=== PATIENT | male | born 1980 | race Two or more races ===

== ENCOUNTER 2021-02-21 22:52 | Observation (INO) | payer OTHER ==
[~2021-02-21] VITALS: Ht 172.7 cm; Wt 94.6 kg
[2021-02-21 23:15] LABS: BASO % 0 % (0-3); EOS % 0 % (0-3); HEMATOCRIT 38.3 % (39.0-53.0); HEMOGLOBIN 13.5 g/dL (13.0-17.5); LYMPH # 1.7 x10^3/uL (1.0-4.8); LYMPH % 13 % (24-48); MEAN CORPUSCULAR HEMOGLOBIN 32 pg (25-35); MEAN CORPUSCULAR HGB CONC 35 g/dL (31-37); MEAN CORPUSCULAR VOLUME 91 fL (79-100); MONO # 1.5 x10^3/uL (0.0-1.1); MONO % 12 % (0-9); NEUT # 9.4 x10^3/uL (1.8-7.7); NEUT % 75 % (31-73); PLATELET COUNT 205 x10^3/uL (140-400); RED BLOOD COUNT 4.22 x10^6/uL (4.30-5.70); RED CELL DISTRIBUTION WIDTH 12.7 % (11.5-14.5); WHITE BLOOD COUNT 12.6 x10^3/uL (4.0-11.0)
[2021-02-21] MEDS ORDERED: IV NORMAL SALINE 1000ML BAG 1,000 ML IV ONE (23:15)
[2021-02-21] MEDS ORDERED: METOCLOPRAMIDE HCL 10 MG/2 ML VIAL. IVP ONE (23:15)
[2021-02-21] MEDS ORDERED: KETOROLAC 15 MG/ML VIAL. IVP ONE (23:15)
[2021-02-21 23:26] LABS: CALCIUM 8.8 mg/dL (8.5-10.1); GFR 82.8; POTASSIUM 3.3 mmol/L (3.5-5.1)
[2021-02-21 23:32] LABS: ALBUMIN 3.7 g/dL (3.4-5.0); ALBUMIN/GLOBULIN RATIO 1.1 (1.0-1.7); MAGNESIUM 2.2 mg/dL (1.8-2.4); TOTAL BILIRUBIN 0.5 mg/dL (0.2-1.0)
[2021-02-21] MEDS ORDERED: IOHEXOL 300 MG/ML 100ML VIAL. IV ONE (23:45)
[2021-02-21] MEDS ORDERED: CONTRAST GIVEN. MC PRN (23:45)
[2021-02-21 23:46] LABS: BILIRUBIN,URINE SMALL (NEG); CLARITY,URINE CLEAR; COLOR,URINE YELLOW; NITRITE,URINE NEGATIVE (NEG); PH,URINE 6.5 (<5.0-8.0); PROTEIN,URINE 30 mg/dL (NEG-TRACE)
[2021-02-21 23:48] LABS: BACTERIA,URINE 0 /HPF (0-FEW); RBC,URINE RARE /HPF (0-2); WBC,URINE RARE /HPF (0-4)
[2021-02-22] VITALS (10 sets, daily range): BP systolic 110–149; BP diastolic 68–87
--- NOTE | 2021-02-22 00:35 | PHYS DOC ---
Past Medical History Past Medical History: No Pertinent History Past Surgical History: No Surgical History Smoking Status: Never Smoker Alcohol Use: Occasionally Drug Use: None General Adult EDM: Chief Complaint: ABDOMINAL PAIN HPI: HPI: 40-year-old male presents with report of right lower quadrant abdominal pain. Patient reports initially started more diffuse in nature and has since consolidated to the right lower quadrant. Reports has been ongoing since Monday02/20/2021. Denies known sick contacts. Reports associated subjective fever/chills, headache, and generalized malaise, denies surgical history. Denies trauma. Reports last ate at approximately 1600. Review of Systems: Review of Systems: Constitutional: Reports subjective fever/chills Eyes: Denies redness or eye pain HENT: Denies nasal congestion or sore throat Respiratory: Denies cough or shortness of breath Cardiovascular: Denies chest pain or palpitations GI: Reports right lower quadrant abdominal pain and nausea : Denies dysuria or hematuria Musculoskeletal: Denies back pain or joint pain Integument: Denies rash or skin lesions Neurologic: Reports headache; denies focal weakness or sensory changes Complete systems were reviewed and found to be within normal limits, except as documented in this note. Heart Score: C/O Chest Pain: N/A Current Medications: Current Medications Medications (Trade) Dose Ordered Sig/Jovany Start Time Stop Time Status Last Admin Dose Admin Info (CONTRAST GIVEN -- Rx MONITORING) 1 each PRN DAILY PRN 02/21/21 23:45 02/23/21 23:44 Iohexol (Omnipaque 300 Mg/ml) 75 ml 1X ONCE 02/21/21 23:45 02/21/21 23:46 DC 02/21/21 23:57 75 ML Ketorolac Tromethamine (Toradol 15mg Vial) 15 mg 1X ONCE 02/21/21 23:15 02/21/21 23:16 DC 02/21/21 23:19 15 MG Metoclopramide HCl (Reglan Vial) 10 mg 1X ONCE 02/21/21 23:15 02/21/21 23:16 DC 02/21/21 23:20 10 MG Sodium Chloride 1,000 ml @ 1,000 mls/hr 1X ONCE 02/21/21 23:15 02/22/21 00:14 DC 02/21/21 23:19 1,000 MLS/HR Allergies: Allergies: Allergies Coded Allergies Type Severity Reaction Last Updated Verified No Known Drug Allergies 02/21/21 No Physical Exam: PE: Constitutional: Well developed, well nourished, ill but non-toxic appearance HENT: Normocephalic, atraumatic Eyes: Conjunctiva normal, no discharge Neck: Normal range of motion, no meningeal signs supple Lungs & Thorax: No respiratory distress, equal chest rise and fall Abdomen: Soft, focal right lower quadrant abdominal pain, mildly positive psoas sign Skin: Warm, dry, no erythema, no rash Back: No tenderness, no CVA tenderness Extremities: No tenderness, ROM intact, no edema Neurologic: Alert and oriented X 3, no focal deficits noted Psychologic: Affect normal, judgment normal Current Patient Data: Labs: Laboratory Tests Test 02/21/21 23:05 02/21/21 23:35 White Blood Count 12.6 x10^3/uL (4.0-11.0) H Red Blood Count 4.22 x10^6/uL (4.30-5.70) L Hemoglobin 13.5 g/dL (13.0-17.5) Hematocrit 38.3 % (39.0-53.0) L Mean Corpuscular Volume 91 fL (79-100) Mean Corpuscular Hemoglobin 32 pg (25-35) Mean Corpuscular Hemoglobin Concent 35 g/dL (31-37) Red Cell Distribution Width 12.7 % (11.5-14.5) Platelet Count 205 x10^3/uL (140-400) Neutrophils (%) (Auto) 75 % (31-73) H Lymphocytes (%) (Auto) 13 % (24-48) L Monocytes (%) (Auto) 12 % (0-9) H Eosinophils (%) (Auto) 0 % (0-3) Basophils (%) (Auto) 0 % (0-3) Neutrophils # (Auto) 9.4 x10^3/uL (1.8-7.7) H Lymphocytes # (Auto) 1.7 x10^3/uL (1.0-4.8) Monocytes # (Auto) 1.5 x10^3/uL (0.0-1.1) H Eosinophils # (Auto) 0.0 x10^3/uL (0.0-0.7) Basophils # (Auto) 0.0 x10^3/uL (0.0-0.2) Sodium Level 139 mmol/L (136-145) Potassium Level 3.3 mmol/L (3.5-5.1) L Chloride Level 102 mmol/L (98-107) Carbon Dioxide Level 31 mmol/L (21-32) Anion Gap 6 (6-14) Blood Urea Nitrogen 12 mg/dL (8-26) Creatinine 1.0 mg/dL (0.7-1.3) Estimated GFR (Cockcroft-Gault) 82.8 BUN/Creatinine Ratio 12 (6-20) Glucose Level 125 mg/dL (70-99) H Calcium Level 8.8 mg/dL (8.5-10.1) Magnesium Level 2.2 mg/dL (1.8-2.4) Total Bilirubin 0.5 mg/dL (0.2-1.0) Aspartate Amino Transferase (AST) 17 U/L (15-37) Alanine Aminotransferase (ALT) 52 U/L (16-63) Alkaline Phosphatase 74 U/L (46-116) Total Protein 7.0 g/dL (6.4-8.2) Albumin 3.7 g/dL (3.4-5.0) Albumin/Globulin Ratio 1.1 (1.0-1.7) Lipase 102 U/L (73-393) Urine Collection Type Unknown Urine Color Yellow Urine Clarity Clear Urine pH 6.5 (<5.0-8.0) Urine Specific [place] >=1.030 (1.000-1.030) Urine Protein 30 mg/dL (NEG-TRACE) Urine Glucose (UA) Negative mg/dL (NEG) Urine Ketones (Stick) Negative mg/dL (NEG) Urine Blood Negative (NEG) Urine Nitrite Negative (NEG) Urine Bilirubin Small (NEG) Urine Urobilinogen Dipstick 1.0 mg/dL (0.2 mg/dL) Urine Leukocyte Esterase Negative (NEG) Urine RBC Rare /HPF (0-2) Urine WBC Rare /HPF (0-4) Urine Squamous Epithelial Cells Occ /LPF Urine Bacteria 0 /HPF (0-FEW) Urine Mucus Mod /LPF Laboratory Tests 02/21/21 23:05 Laboratory Tests 02/21/21 23:05 Vital Signs: Vital Signs Date Time Temp Pulse Resp B/P (MAP) Pulse Ox O2 Delivery O2 Flow Rate FiO2 7/25/21 23:00 100.0 88 20 143/76 99 Room Air 100.0 EKG: EKG: [] Radiology/Procedures: Radiology/Procedures: PROCEDURE: CT ABD PELV W/ IV CONTRST ONLY EXAMINATION: CT abdomen and pelvis with IV contrast. INDICATION:40 years, Male, right lower quadrant abdominal pain. TECHNIQUE: Axial CT images of the abdomen and pelvis were obtained. Coronal and sagittal reformatted performed. COMPARISON: None. Exposure: One or more of the following individualized dose reduction techniques were utilized for this examination: 1. Automated exposure control 2. Adjustment of the mA and/or kV according to patient size 3. Use of iterative reconstruction technique. FINDINGS: LOWER CHEST: Unremarkable ABDOMEN/PELVIS: Diffuse hepatic steatosis. Unremarkable gallbladder, biliary ducts, spleen and pancreas. No adrenal nodule. Mild left hydronephrosis with abrupt changing calib er at the ureteral pelvic junction, suggesting of ureteropelvic junction stenosis. No right hydronephrosis. No bowel obstruction or wall thickening. Findings of acute appendicitis with distended appendix and periappendiceal fat stranding. There is 0.9 cm appendicolith. No extraluminal gas to suggest perforation. No loculated fluid collection to suggest abscess. Patent abdominal vessels. No lymphadenopathy in the abdomen or pelvis by size criteria. No pneumoperitoneum or ascites. Underdistended urinary bladder which is evaluation. Unremarkable prostate. No pelvic masses. MUSCULOSKELETAL: No acute osseous process. IMPRESSION: 1. Acute uncomplicated appendicitis with appendicolith. 2. Diffuse hepatic steatosis. Electronically signed by: Fox Vernon MD (02/22/2021 12:52 AM) [facility] Course & Med Decision Making: Course & Med Decision Making Pertinent Labs and Imaging studies reviewed. (See chart for details) Patient presents with right lower quadrant abdominal pain x2 days. Concern for possible acute appendicitis. Labs obtained and posted to chart. WBC slightly elevated. CT abd/pelvis with findings consistent for acute appendicitis. Empiric antibiotic provided. Rapid COVID obtained due to need for surgical intervention. Pain addressed. IVF hydration given. Patient requiring admission for further evaluation and treatment. Discussed case with Dr. Munguia (General Surgery) who is in agreement with consultation. Discussed with Dr. Hsu (hospitalist) who is in agreement with admission. Discussed findings and plan with patient and family, who acknowledge understanding and agreement. Dragon Disclaimer: Robert Disclaimer: This electronic medical record was generated, in whole or in part, using a voice recognition dictation system. Departure Departure Impression: Primary Impression: Acute appendicitis Qualified Codes: K35.30 - Acute appendicitis with localized peritonitis, without perforation or gangrene Disposition: ADMITTED INPATIENT Admitting Physician: ELLI Noriega) Condition: STABLE Referrals: NO PCP (PCP) Critical Care Time Critical care time was 30 minutes which includes time at bedside, spent in discussion of patient's care with specialists and/or family members, with interpretation of laboratory and/or radiological studies and is exclusive of procedures. CHRISTINA CUELLO DO Feb 22, 2021 00:35
--- NOTE | 2021-02-22 00:55 | RAD ---
EXAMINATION: CT abdomen and pelvis with IV contrast. INDICATION:40 years, Male, right lower quadrant abdominal pain. TECHNIQUE: Axial CT images of the abdomen and pelvis were obtained. Coronal and sagittal reformatted performed. COMPARISON: None. Exposure: One or more of the following individualized dose reduction techniques were utilized for thi s examination: 1. Automated exposure control 2. Adjustment of the mA and/or kV according to patient size 3. Use of iterative reconstruction technique. FINDINGS: LOWER CHEST: Unremarkable ABDOMEN/PELVIS: Diffuse hepatic steatosis. Unremarkable gallbladder, biliary ducts, spleen and pancreas. No adrenal n odule. Mild left hydronephrosis with abrupt changing caliber at the ureteral pelvic junction, suggest ing of ureteropelvic junction stenosis. No right hydronephrosis. No bowel obstruction or wall thicken ing. Findings of acute appendicitis with distended appendix and periappendiceal fat stranding. There is 0.9 cm appendicolith. No extraluminal gas to suggest perforation. No loculated fluid collection to suggest abscess. Patent abdominal vessels. No lymphadenopathy in the abdomen or pelvis by size criteria. No pneumoperi toneum or ascites. Underdistended urinary bladder which is evaluation. Unremarkable prostate. No pelv ic masses. MUSCULOSKELETAL: No acute osseous process. IMPRESSION: 1. Acute uncomplicated appendicitis with appendicolith. 2. Diffuse hepatic steatosis. Electronically signed by: Fox Vernon MD (02/22/2021 12:52 AM) [facility]
[2021-02-22] MEDS ORDERED: PIPERACILLIN/TAZOBACTAM 3.375 GM in IV NORMAL SALINE 50ML 50 ML IV ONE (01:00)
[2021-02-22] MEDS ORDERED: fentaNYL PF VIAL 100 MCG/2 ML VIAL IV PRN (01:15)
[2021-02-22] MEDS ORDERED: ONDANSETRON PF 4 MG/2 ML VIAL. IV PRN (01:15)
[2021-02-22] MEDS ORDERED: PROCHLORPERAZINE 10 MG/2 ML VIAL. IVP PRN ×2 (05:30→07:30)
[2021-02-22] MEDS ORDERED: ZOLPIDEM 5 MG TABLET. PO PRN (05:30)
[2021-02-22] MEDS ORDERED: ACETAMINOPHEN 325 MG TABLET. PO PRN ×3 (05:30→08:45)
[2021-02-22] MEDS ORDERED: MORPHINE SULFATE 4 MG/ML INJ. IV PRN ×2 (05:30)
[2021-02-22] MEDS ORDERED: ONDANSETRON PF 4 MG/2 ML VIAL. IVP PRN ×2 (05:30→08:45)
[2021-02-22] MEDS ORDERED: MAG HYDROX/ALUMINUM HYD/SIMETH 30 ML ORAL.SUSP PO PRN (05:30)
[2021-02-22] MEDS ORDERED: MAGNESIUM HYDROXIDE 2,400 MG/30 ML ORAL.SUSP. PO PRN (05:30)
[2021-02-22] MEDS ORDERED: CALCIUM CARBONATE 500 MG TAB.CHEW PO PRN (05:30)
[2021-02-22] MEDS ORDERED: PIP/TAZO PER PHARMACY MC PRN (05:30)
[2021-02-22] MEDS: IV NORMAL SALINE 1000ML BAG 1,000 ML IV SCH ×3 (05:40→20:56)
[2021-02-22] MEDS ORDERED: ACETAMINOPHEN 650 MG SUPP.RECT. PR PRN (05:45)
[2021-02-22] MEDS: HEPARIN for SUB-Q USE 5,000 UNIT/ML VIAL. SQ SCH ×3 (06:00→22:00)
[2021-02-22] MEDS: PIPERACILLIN/TAZOBACTAM 3.375 GM in IV NORMAL SALINE 50ML 50 ML IV SCH ×4 (07:24→23:23)
[2021-02-22] MEDS ORDERED: HYDROmorphone 2 MG/ML VIAL IVP PRN (07:30)
[2021-02-22] MEDS ORDERED: MORPHINE SULFATE 2 MG/ML INJ. IVP PRN (07:30)
[2021-02-22] MEDS ORDERED: IV RINGERS,LACTATED 1000ML 1,000 ML IV SCH (07:30)
[2021-02-22] MEDS ORDERED: fentaNYL PF VIAL 100 MCG/2 ML VIAL IVP PRN ×2 (07:30)
[2021-02-22] MEDS ORDERED: PROPOFOL 10 MG/ML (20ML) VIAL. IV ONE (08:00)
[2021-02-22] MEDS ORDERED: ONDANSETRON PF 4 MG/2 ML VIAL. ONE (08:00)
[2021-02-22] MEDS ORDERED: DEXAMETHASONE SOD PHOS 4 MG/ML VIAL ONE (08:00)
[2021-02-22] MEDS ORDERED: LIDOCAINE 2% PF 5 ML VIAL. ONE (08:00)
[2021-02-22] MEDS ORDERED: fentaNYL PF VIAL 100 MCG/2 ML VIAL ONE ×2 (08:01→08:30)
[2021-02-22] MEDS ORDERED: SUCCINYLCHOLINE 200 MG/10 ML VIAL. ONE (08:01)
[2021-02-22] MEDS ORDERED: ROCURONIUM 50 MG/5 ML VIAL. ONE (08:01)
[2021-02-22] MEDS ORDERED: MIDAZOLAM HCL/PF 2 MG/2 ML VIAL. ONE (08:01)
[2021-02-22] MEDS ORDERED: GLYCOPYRROLATE 1 MG/5 ML VIAL. ONE (08:05)
--- NOTE | 2021-02-22 08:14 | PDOC2 ---
CONSULT Date of Consult Date of Consult DATE: 02/22/21 TIME: 08:11 Reason for Consult Reason for Consult: Acute appendicitis Referring Physician Referring Physician: Shadi Identification/Chief Complaint Chief Complaint Right lower quadrant abdominal pain Source Source: Chart review, Patient History of Present Illness Reason for Visit: 40-year-old male with 2-day history of right lower quadrant abdominal pain elevated white count CT scan showing signs consistent with acute appendicitis. Past Medical History Cardiovascular: No pertinent hx Pulmonary: No pertinent hx GI: No pertinent hx Heme/Onc: No pertinent hx Hepatobiliary: No pertinent hx Psych: No pertinent hx Rheumatologic: No pertinent hx Infectious disease: No pertinent hx ENT: No pertinent hx Renal/: No pertinent hx Endocrine: No pertinent hx Dermatology: No pertinent hx Past Surgical History Past Surgical History: No pertinent history Family History Family History: No Significant Social History No ALCOHOL: none Lives: with Family Current Problem List Problem List Problems Medical Problems: (1) Acute appendicitis Status: Acute Current Medications Current Medications Current Medications Sodium Chloride 1,000 ml @ 1,000 mls/hr 1X ONCE IV Last administered on 02/21/21at 23:19; Start 02/21/21 at 23:15; Stop 02/22/21 at 00:14; Status DC Ketorolac Tromethamine (Toradol 15mg Vial) 15 mg 1X ONCE IVP Last administered on 02/21/21at 23:19; Start 02/21/21 at 23:15; Stop 02/21/21 at 23:16; Status DC Metoclopramide HCl (Reglan Vial) 10 mg 1X ONCE IVP Last administered on 02/21/21at 23:20; Start 02/21/21 at 23:15; Stop 02/21/21 at 23:16; Status DC Iohexol (Omnipaque 300 Mg/ml) 75 ml 1X ONCE IV Last administered on 02/21/21at 23:57; Start 02/21/21 at 23:45; Stop 02/21/21 at 23:46; Status DC Info (CONTRAST GIVEN -- Rx MONITORING) 1 each PRN DAILY PRN MC SEE COMMENTS; Start 02/21/21 at 23:45; Stop 02/23/21 at 23:44 Piperacillin Sod/ Tazobactam Sod 3.375 gm/Sodium Chloride 50 ml @ 100 mls/hr 1X ONCE IV Last administered on 02/22/21at 01:24; Start 02/22/21 at 01:00; Stop 02/22/21 at 01:29; Status DC Ondansetron HCl (Zofran) 4 mg PRN Q8HRS PRN IV NAUSEA/VOMITING; Start 02/22/21 at 01:15; Stop 02/23/21 at 01:14 Fentanyl Citrate (Fentanyl 2ml Vial) 50 mcg PRN Q2HR PRN IV PAIN Last administ ered on 02/22/21at 01:24; Start 02/22/21 at 01:15 Sodium Chloride 1,000 ml @ 100 mls/hr Q10H IV Last administered on 02/22/21at 05:40; Start 02/22/21 at 01:15; Stop 02/23/21 at 01:14 Acetaminophen (Tylenol) 650 mg PRN Q6HRS PRN PO MILD PAIN / TEMP > 100.3'F Last administered on 02/22/21at 05:38; Start 02/22/21 at 05:30 Morphine Sulfate (Morphine Sulfate) 4 mg PRN Q2HR PRN IV PAIN; Start 02/22/21 at 05:30 Piperacillin Sod/ Tazobactam Sod (Zosyn Per Pharmacy) 1 each PRN DAILY PRN MC SEE COMMENTS; Start 02/22/21 at 05:30 Morphine Sulfate (Morphine Sulfate) 4 mg PRN Q2HR PRN IV PAIN; Start 02/22/21 at 05:30; Status UNV Piperacillin Sod/ Tazobactam Sod 3.375 gm/Sodium Chloride 50 ml @ 100 mls/hr Q6HRS IV Last administered on 02/22/21at 07:24; Start 02/22/21 at 06:00 Ondansetron HCl (Zofran) 4 mg PRN Q6HRS PRN IVP NAUSEA/VOMITING; Start 02/22/21 at 05:30 Prochlorperazine Edisylate (Compazine) 10 mg PRN Q6HRS PRN IVP NAUSEA/VOMITING; Start 02/22/21 at 05:30 Al Hydroxide/Mg Hydroxide (Mylanta Plus Xs) 30 ml PRN Q3HRS PRN PO HEARTBURN / GAS; Start 02/22/21 at 05:30 Calcium Carbonate/ Glycine (Tums) 500 mg PRN Q3HRS PRN PO UPSET STOMACH; Start 02/22/21 at 05:30 Zolpidem Tartrate (Ambien) 5 mg PRN QHS PRN PO INSOMNIA, MAY REPEAT IN 1HR; Start 02/22/21 at 05:30 Acetaminophen (Tylenol) 650 mg PRN Q6HRS PRN PO Headaches, Temp > 101.5F; Start 02/22/21 at 05:30 Magnesium Hydroxide (Milk Of Magnesia) 2,400 mg PRN Q12HR PRN PO CONSTIPATION; Start 02/22/21 at 05:30 Heparin Sodium (Porcine) (Heparin Sodium) 5,000 unit Q8HRS SQ ; Start 02/22/21 at 06:00 Acetaminophen (Tylenol Supp) 650 mg PRN Q6HRS PRN ME MILD PAIN / TEMP > 100.3'F; Start 02/22/21 at 05:45 Fentanyl Citrate (Fentanyl 2ml Vial) 25 mcg PRN Q5MIN PRN IVP MILD PAIN 1-3; Start 02/22/21 at 07:30; Stop 02/23/21 at 07:29 Fentanyl Citrate (Fentanyl 2ml Vial) 50 mcg PRN Q5MIN PRN IVP MODERATE PAIN 4- 6; Start 02/22/21 at 07:30; Stop 02/23/21 at 07:29 Morphine Sulfate (Morphine Sulfate) 1 mg PRN Q10MIN PRN IVP SEVERE PAIN 7-10; Start 02/22/21 at 07:30; Stop 02/23/21 at 07:29 Ringer's Solution 1,000 ml @ 30 mls/hr Q24H IV ; Start 02/22/21 at 07:30; Stop 02/22/21 at 19:29 Hydromorphone HCl (Dilaudid) 0.5 mg PRN Q10MIN PRN IVP SEVERE PAIN 7-10, 2nd CHOICE; Start 02/22/21 at 07:30; Stop 02/23/21 at 07:29 Prochlorperazine Edisylate (Compazine) 5 mg PACU PRN PRN IVP NAUSEA, MRX1; Start 02/22/21 at 07:30; Stop 02/23/21 at 07:29 Propofol (Diprivan) 200 mg STK-MED ONCE IV ; Start 02/22/21 at 08:00; Stop 02/22/21 at 08:01; Status DC Lidocaine HCl (Lidocaine Pf 2% Vial) 5 ml STK-MED ONCE .ROUTE ; Start 02/22/21 at 08:00; Stop 02/22/21 at 08:01; Status DC Dexamethasone Sodium Phosphate (Decadron) 4 mg STK-MED ONCE .ROUTE ; Start 02/22/21 at 08:00; Stop 02/22/21 at 08:01; Status DC Ondansetron HCl (Zofran) 4 mg STK-MED ONCE .ROUTE ; Start 02/22/21 at 08:00; Stop 02/22/21 at 08:01; Status DC Succinylcholine Chloride (Anectine) 200 mg STK-MED ONCE .ROUTE ; Start 02/22/21 at 08:01; Stop 02/22/21 at 08:01; Status DC Fentanyl Citrate (Fentanyl 2ml Vial) 100 mcg STK-MED ONCE .ROUTE ; Start 02/22/21 at 08:01; Stop 02/22/21 at 08:01; Status DC Midazolam HCl (Versed) 2 mg STK-MED ONCE .ROUTE ; Start 02/22/21 at 08:01; Stop 02/22/21 at 08:02; Status DC Rocuronium [place] (Zemuron) 50 mg STK-MED ONCE .ROUTE ; Start 02/22/21 at 08:01 ; Stop 02/22/21 at 08:02; Status DC Glycopyrrolate (Robinul) 1 mg STK-MED ONCE .ROUTE ; Start 02/22/21 at 08:05; Stop 02/22/21 at 08:05; Status DC Allergies Allergies: Coded Allergies: No Known Drug Allergies (Unverified , 02/21/21) ROS Gastrointestinal: Yes Abdominal Pain Physical Exam General: Alert, Oriented X3, Cooperative, mild distress HEENT: Atraumatic, EOMI Lungs: Clear to auscultation, Normal air movement Heart: Regular rate, No murmurs Abdomen: Normal bowel sounds, Soft, Other (Tender to palpation right lower quadrant) Extremities: No edema Skin: No significant lesion Neuro: Normal speech Psych/Mental Status: Mental status NL Vitals VITALS Vital Signs Date Time Temp Pulse Resp B/P (MAP) Pulse Ox O2 Delivery O2 Flow Rate FiO2 02/22/21 07:42 99.6 114 21 131/74 98 Room Air 99.6 Labs Labs Laboratory Tests Test 02/21/21 23:05 02/21/21 23:35 02/22/21 01:18 White Blood Count 12.6 x10^3/uL (4.0-11.0) Red Blood Count 4.22 x10^6/uL (4.30-5.70) Hemoglobin 13.5 g/dL (13.0-17.5) Hematocrit 38.3 % (39.0-53.0) Mean Corpuscular Volume 91 fL (79-100) Mean Corpuscular Hemoglobin 32 pg (25-35) Mean Corpuscular Hemoglobin Concent 35 g/dL (31-37) Red Cell Distribution Width 12.7 % (11.5-14.5) Platelet Count 205 x10^3/uL (140-400) Neutrophils (%) (Auto) 75 % (31-73) Lymphocytes (%) (Auto) 13 % (24-48) Monocytes (%) (Auto) 12 % (0-9) Eosinophils (%) (Auto) 0 % (0-3) Basophils (%) (Auto) 0 % (0-3) Neutrophils # (Auto) 9.4 x10^3/uL (1.8-7.7) Lymphocytes # (Auto) 1.7 x10^3/uL (1.0-4.8) Monocytes # (Auto) 1.5 x10^3/uL (0.0-1.1) Eosinophils # (Auto) 0.0 x10^3/uL (0.0-0.7) Basophils # (Auto) 0.0 x10^3/uL (0.0-0.2) Sodium Level 139 mmol/L (136-145) Potassium Level 3.3 mmol/L (3.5-5.1) Chloride Level 102 mmol/L (98-107) Carbon Dioxide Level 31 mmol/L (21-32) Anion Gap 6 (6-14) Blood Urea Nitrogen 12 mg/dL (8-26) Creatinine 1.0 mg/dL (0.7-1.3) Estimated GFR (Cockcroft-Gault) 82.8 BUN/Creatinine Ratio 12 (6-20) Glucose Level 125 mg/dL (70-99) Calcium Level 8.8 mg/dL (8.5-10.1) Magnesium Level 2.2 mg/dL (1.8-2.4) Total Bilirubin 0.5 mg/dL (0.2-1.0) Aspartate Amino Transf (AST/SGOT) 17 U/L (15-37) Alanine Aminotransferase (ALT/SGPT) 52 U/L (16-63) Alkaline Phosphatase 74 U/L (46-116) Total Protein 7.0 g/dL (6.4-8.2) Albumin 3.7 g/dL (3.4-5.0) Albumin/Globulin Ratio 1.1 (1.0-1.7) Lipase 102 U/L (73-393) Urine Collection Type Unknown Urine Color Yellow Urine Clarity Clear Urine pH 6.5 (<5.0-8.0) Urine Specific [place] >=1.030 (1.000-1.030) Urine Protein 30 mg/dL (NEG-TRACE) Urine Glucose (UA) Negative mg/dL (NEG) Urine Ketones (Stick) Negative mg/dL (NEG) Urine Blood Negative (NEG) Urine Nitrite Negative (NEG) Urine Bilirubin Small (NEG) Urine Urobilinogen Dipstick 1.0 mg/dL (0.2 mg/dL) Urine Leukocyte Esterase Negative (NEG) Urine RBC Rare /HPF (0-2) Urine WBC Rare /HPF (0-4) Urine Squamous Epithelial Cells Occ /LPF Urine Bacteria 0 /HPF (0-FEW) Urine Mucus Mod /LPF SARS-CoV-2 Antigen (Rapid) Negative (NEGATIVE) Laboratory Tests Test 02/21/21 23:05 02/21/21 23:35 02/22/21 01:18 White Blood Count 12.6 x10^3/uL (4.0-11.0) Red Blood Count 4.22 x10^6/uL (4.30-5.70) Hemoglobin 13.5 g/dL (13.0-17.5) Hematocrit 38.3 % (39.0-53.0) Mean Corpuscular Volume 91 fL (79-100) Mean Corpuscular Hemoglobin 32 pg (25-35) Mean Corpuscular Hemoglobin Concent 35 g/dL (31-37) Red Cell Distribution Width 12.7 % (11.5-14.5) Platelet Count 205 x10^3/uL (140-400) Neutrophils (%) (Auto) 75 % (31-73) Lymphocytes (%) (Auto) 13 % (24-48) Monocytes (%) (Auto) 12 % (0-9) Eosinophils (%) (Auto) 0 % (0-3) Basophils (%) (Auto) 0 % (0-3) Neutrophils # (Auto) 9.4 x10^3/uL (1.8-7.7) Lymphocytes # (Auto) 1.7 x10^3/uL (1.0-4.8) Monocytes # (Auto) 1.5 x10^3/uL (0.0-1.1) Eosinophils # (Auto) 0.0 x10^3/uL (0.0-0.7) Basophils # (Auto) 0.0 x10^3/uL (0.0-0.2) Sodium Level 139 mmol/L (136-145) Potassium Level 3.3 mmol/L (3.5-5.1) Chloride Level 102 mmol/L (98-107) Carbon Dioxide Level 31 mmol/L (21-32) Anion Gap 6 (6-14) Blood Urea Nitrogen 12 mg/dL (8-26) Creatinine 1.0 mg/dL (0.7-1.3) Estimated GFR (Cockcroft-Gault) 82.8 BUN/Creatinine Ratio 12 (6-20) Glucose Level 125 mg/dL (70-99) Calcium Level 8.8 mg/dL (8.5-10.1) Magnesium Level 2.2 mg/dL (1.8-2.4) Total Bilirubin 0.5 mg/dL (0.2-1.0) Aspartate Amino Transf (AST/SGOT) 17 U/L (15-37) Alanine Aminotransferase (ALT/SGPT) 52 U/L (16-63) Alkaline Phosphatase 74 U/L (46-116) Total Protein 7.0 g/dL (6.4-8.2) Albumin 3.7 g/dL (3.4-5.0) Albumin/Globulin Ratio 1.1 (1.0-1.7) Lipase 102 U/L (73-393) Urine Collection Type Unknown Urine Color Yellow Urine Clarity Clear Urine pH 6.5 (<5.0-8.0) Urine Specific [place] >=1.030 (1.000-1.030) Urine Protein 30 mg/dL (NEG-TRACE) Urine Glucose (UA) Negative mg/dL (NEG) Urine Ketones (Stick) Negative mg/dL (NEG) Urine Blood Negative (NEG) Urine Nitrite Negative (NEG) Urine Bilirubin Small (NEG) Urine Urobilinogen Dipstick 1.0 mg/dL (0.2 mg/dL) Urine Leukocyte Esterase Negative (NEG) Urine RBC Rare /HPF (0-2) Urine WBC Rare /HPF (0-4) Urine Squamous Epithelial Cells Occ /LPF Urine Bacteria 0 /HPF (0-FEW) Urine Mucus Mod /LPF SARS-CoV-2 Antigen (Rapid) Negative (NEGATIVE) Assessment/Plan Assessment/Plan Right lower quadrant abdominal pain leukocytosis and a CT scan showing signs consistent with acute appendicitis plan laparoscopic appendectomy RODGER CORRAL MD Feb 22, 2021 08:14
[2021-02-22] MEDS ORDERED: NEOSTIGMINE METHYLSULFATE 5 MG/5 ML SYRINGE. ONE ×2 (08:26→08:41)
[2021-02-22] MEDS ORDERED: KETOROLAC 30 MG/ML VIAL. ONE (08:28)
--- NOTE | 2021-02-22 08:36 | NUR ---
Am assessment charted at incorrect time. Assessment was done at 0705 prior to pt going to sx.
[2021-02-22] MEDS ORDERED: BUPIVACAINE-EPI 0.25%-1:200000 MPF 30 ML VIAL. INJ ONE (08:43)
[2021-02-22] MEDS ORDERED: DEXTROSE 50% 25 GM / 50ML DISP.SYRIN. IV PRN (08:45)
[2021-02-22] MEDS ORDERED: DOCUSATE SODIUM 100 MG CAPSULE. PO PRN (08:45)
[2021-02-22] MEDS ORDERED: PROCHLORPERAZINE 10 MG/2 ML VIAL. IV PRN (08:45)
[2021-02-22] MEDS ORDERED: SENNOSIDES 8.6 MG TABLET PO PRN (08:45)
[2021-02-22] MEDS ORDERED: SEVOFLURANE 61 TO 120 MINUTES. IH ONE (08:46)
--- NOTE | 2021-02-22 08:54 | PDOC1 ---
History and Physical Date of Service: DOS: DATE: 02/22/21 TIME: 08:46 Chief Complaint: Chief Complain: Abdominal pain History of Present Illness: HPI: 40-year-old fairly healthy male presents with report of right lower quadrant abdominal pain. Patient reports pain all over the abdomen that slowly migrated to the right side.. Reports has been ongoing since 2 days ago. Denies known sick contacts. Reports associated subjective fever/chills, headache, and generalized malaise, denies surgical history. Denies fevers, chest pain, diarrhea, trauma or bloody stools. Past Medical/Surgical History: PMH/PSH: Past Medical History: No Pertinent History Past Surgical History: No Surgical History Allergies: Allergies: Coded Allergies: No Known Drug Allergies (Unverified , 02/21/21) Family History: Family History: Reviewed with no relevant findings Social History: Social History: Smoking Status: Never Smoker Alcohol Use: Occasionally Drug Use: None Current Medications: Current Medications Current Medications Sodium Chloride 1,000 ml @ 1,000 mls/hr 1X ONCE IV Last administered on 02/21/21at 23:19; Start 02/21/21 at 23:15; Stop 02/22/21 at 00:14; Status DC Ketorolac Tromethamine (Toradol 15mg Vial) 15 mg 1X ONCE IVP Last administered on 02/21/21at 23:19; Start 02/21/21 at 23:15; Stop 02/21/21 at 23:16; Status DC Metoclopramide HCl (Reglan Vial) 10 mg 1X ONCE IVP Last administered on 02/21/21at 23:20; Start 02/21/21 at 23:15; Stop 02/21/21 at 23:16; Status DC Iohexol (Omnipaque 300 Mg/ml) 75 ml 1X ONCE IV Last administered on 02/21/21at 23:57; Start 02/21/21 at 23:45; Stop 02/21/21 at 23:46; Status DC Info (CONTRAST GIVEN -- Rx MONITORING) 1 each PRN DAILY PRN MC SEE COMMENTS; Start 02/21/21 at 23:45; Stop 02/23/21 at 23:44 Piperacillin Sod/ Tazobactam Sod 3.375 gm/Sodium Chloride 50 ml @ 100 mls/hr 1X ONCE IV Last administered on 02/22/21at 01:24; Start 02/22/21 at 01:00; Stop 02/22/21 at 01:29; Status DC Ondansetron HCl (Zofran) 4 mg PRN Q8HRS PRN IV NAUSEA/VOMITING; Start 02/22/21 at 01:15; Stop 02/23/21 at 01:14 Fentanyl Citrate (Fentanyl 2ml Vial) 50 mcg PRN Q2HR PRN IV PAIN Last administered on 02/22/21at 01:24; Start 02/22/21 at 01:15 Sodium Chloride 1,000 ml @ 100 mls/hr Q10H IV Last administered on 02/22/21at 05:40; Start 02/22/21 at 01:15; Stop 02/23/21 at 01:14 Acetaminophen (Tylenol) 650 mg PRN Q6HRS PRN PO MILD PAIN / TEMP > 100.3'F Last administered on 02/22/21at 05:38; Start 02/22/21 at 05:30 Morphine Sulfate (Morphine Sulfate) 4 mg PRN Q2HR PRN IV PAIN; Start 02/22/21 at 05:30 Piperacillin Sod/ Tazobactam Sod (Zosyn Per Pharmacy) 1 each PRN DAILY PRN MC SEE COMMENTS; Start 02/22/21 at 05:30 Morphine Sulfate (Morphine Sulfate) 4 mg PRN Q2HR PRN IV PAIN; Start 02/22/21 at 05:30; Status UNV Piperacillin Sod/ Tazobactam Sod 3.375 gm/Sodium Chloride 50 ml @ 100 mls/hr Q6HRS IV Last administered on 02/22/21at 07:24; Start 02/22/21 at 06:00 Ondansetron HCl (Zofran) 4 mg PRN Q6HRS PRN IVP NAUSEA/VOMITING; Start 02/22/21 at 05:30 Prochlorperazine Edisylate (Compazine) 10 mg PRN Q6HRS PRN IVP NAUSEA/VOMITING; Start 02/22/21 at 05:30 Al Hydroxide/Mg Hydroxide (Mylanta Plus Xs) 30 ml PRN Q3HRS PRN PO HEARTBURN / GAS; Start 02/22/21 at 05:30 Calcium Carbonate/ Glycine (Tums) 500 mg PRN Q3HRS PRN PO UPSET STOMACH; Start 02/22/21 at 05:30 Zolpidem Tartrate (Ambien) 5 mg PRN QHS PRN PO INSOMNIA, MAY REPEAT IN 1HR; Start 02/22/21 at 05:30 Acetaminophen (Tylenol) 650 mg PRN Q6HRS PRN PO Headaches, Temp > 101.5F; Start 02/22/21 at 05:30 Magnesium Hydroxide (Milk Of Magnesia) 2,400 mg PRN Q12HR PRN PO CONSTIPATION; Start 02/22/21 at 05:30 Heparin Sodium (Porcine) (Heparin Sodium) 5,000 unit Q8HRS SQ ; Start 02/22/21 at 06:00 Acetaminophen (Tylenol Supp) 650 mg PRN Q6HRS PRN NC MILD PAIN / TEMP > 100.3'F; Start 02/22/21 at 05:45 Fentanyl Citrate (Fentanyl 2ml Vial) 25 mcg PRN Q5MIN PRN IVP MILD PAIN 1-3; Start 02/22/21 at 07:30; Stop 02/23/21 at 07:29 Fentanyl Citrate (Fentanyl 2ml Vial) 50 mcg PRN Q5MIN PRN IVP MODERATE PAIN 4- 6; Start 02/22/21 at 07:30; Stop 02/23/21 at 07:29 Morphine Sulfate (Morphine Sulfate) 1 mg PRN Q10MIN PRN IVP SEVERE PAIN 7-10; Start 02/22/21 at 07:30; Stop 02/23/21 at 07:29 Ringer's Solution 1,000 ml @ 30 mls/hr Q24H IV ; Start 02/22/21 at 07:30; Stop 02/22/21 at 19:29 Hydromorphone HCl (Dilaudid) 0.5 mg PRN Q10MIN PRN IVP SEVERE PAIN 7-10, 2nd CHOICE; Start 02/22/21 at 07:30; Stop 02/23/21 at 07:29 Prochlorperazine Edisylate (Compazine) 5 mg PACU PRN PRN IVP NAUSEA, MRX1; Start 02/22/21 at 07:30; Stop 02/23/21 at 07:29 Propofol (Diprivan) 200 mg STK-MED ONCE IV ; Start 02/22/21 at 08:00; Stop 02/22/21 at 08:01; Status DC Lidocaine HCl (Lidocaine Pf 2% Vial) 5 ml STK-MED ONCE .ROUTE ; Start 02/22/21 at 08:00; Stop 02/22/21 at 08:01; Status DC Dexamethasone Sodium Phosphate (Decadron) 4 mg STK-MED ONCE .ROUTE ; Start 02/22/21 at 08:00; Stop 02/22/21 at 08:01; Status DC Ondansetron HCl (Zofran) 4 mg STK-MED ONCE .ROUTE ; Start 02/22/21 at 08:00; Stop 02/22/21 at 08:01; Status DC Succinylcholine Chloride (Anectine) 200 mg STK-MED ONCE .ROUTE ; Start 02/22/21 at 08:01; Stop 02/22/21 at 08:01; Status DC Fentanyl Citrate (Fentanyl 2ml Vial) 100 mcg STK-MED ONCE .ROUTE ; Start 02/22/21 at 08:01; Stop 02/22/21 at 08:01; Status DC Midazolam HCl (Versed) 2 mg STK-MED ONCE .ROUTE ; Start 02/22/21 at 08:01; Stop 02/22/21 at 08:02; Status DC Rocuronium Lincoln (Zemuron) 50 mg STK-MED ONCE .ROUTE ; Start 02/22/21 at 08:01; Stop 02/22/21 at 08:02; Status DC Glycopyrrolate (Robinul) 1 mg STK-MED ONCE .ROUTE ; Start 02/22/21 at 08:05; Stop 02/22/21 at 08:05; Status DC Neostigmine [place] (Neostigmine Methylsulfate) 5 mg STK-MED ONCE .ROUTE ; Start 02/22/21 at 08:26; Stop 02/22/21 at 08:27; Status DC Ketorolac Tromethamine (Toradol 30mg Vial) 30 mg STK-MED ONCE .ROUTE ; Start 02/22/21 at 08:28; Stop 02/22/21 at 08:29; Status DC Fentanyl Citrate (Fentanyl 2ml Vial) 100 mcg STK-MED ONCE .ROUTE ; Start 02/22/21 at 08:30; Stop 02/22/21 at 08:31; Status DC Neostigmine [place] (Neostigmine Methylsulfate) 5 mg STK-MED ONCE .ROUTE ; Start 02/22/21 at 08:41; Stop 02/22/21 at 08:41; Status DC ROS: Review of Systems Review of System REVIEW OF SYSTEMS: GENERAL: Denies weakness SKIN: No bruising, hair changes or rashes. EYES: No blurred, double or loss of vision. NOSE AND THROAT: No history of nosebleeds, hoarseness or sore throat. HEART: No history of palpitations, chest pain or shortness of breath on exertion. LUNGS: Denies cough, hemoptysis, wheezing or shortness of breath. GASTROINTESTINAL: Denies changes in appetite, nausea, vomiting, diarrhea or constipation. GENITOURINARY: No history of frequency, urgency, hesitancy or nocturia. NEUROLOGIC: Denies history of numbness, tingling, or tremor. PSYCHIATRIC: No history of panic, anxiety or depression. ENDOCRINE: No history of heat or cold intolerance, polyuria or polydipsia. EXTREMITIES: Denies joint pain, pain on walking or stiffness. Physical Exam: Vital Signs: Vital Signs Date Time Temp Pulse Resp B/P (MAP) Pulse Ox O2 Delivery O2 Flow Rate FiO2 02/22/21 08:11 Room Air 02/22/21 07:42 99.6 114 21 131/74 98 99.6 Physcial Exam: General: Well developed, well nourished, no acute distress, well appearing HEENT: Pupils equally round and reactive to light, EOMI, no discharge, normal conjunctiva Neck: Supple, no nuchal rigidity, no JVD, trachea midline, no tenderness Cardiac: RRR, no murmurs, no gallops, no rubs Chest/Lungs: CTAB, no wheeze, no rhonchi, no crackles Abdomen: Obese, soft, non-distended, no guarding, no peritoneal signs, right lower quadrant tenderness Back: No tenderness Extremities: no edema, pulses intact, non-tender,capillary refill <3 sec bilateral upper and lower extremities, Neuro: Alert and oriented x 4, no focal deficits, normal speech Labs: Labs: Laboratory Tests Test 02/21/21 23:05 02/21/21 23:35 02/22/21 01:18 White Blood Count 12.6 x10^3/uL (4.0-11.0) Red Blood Count 4.22 x10^6/uL (4.30-5.70) Hemoglobin 13.5 g/dL (13.0-17.5) Hematocrit 38.3 % (39.0-53.0) Mean Corpuscular Volume 91 fL (79-100) Mean Corpuscular Hemoglobin 32 pg (25-35) Mean Corpuscular Hemoglobin Concent 35 g/dL (31-37) Red Cell Distribution Width 12.7 % (11.5-14.5) Platelet Count 205 x10^3/uL (140-400) Neutrophils (%) (Auto) 75 % (31-73) Lymphocytes (%) (Auto) 13 % (24-48) Monocytes (%) (Auto) 12 % (0-9) Eosinophils (%) (Auto) 0 % (0-3) Basophils (%) (Auto) 0 % (0-3) Neutrophils # (Auto) 9.4 x10^3/uL (1.8-7.7) Lymphocytes # (Auto) 1.7 x10^3/uL (1.0-4.8) Monocytes # (Auto) 1.5 x10^3/uL (0.0-1.1) Eosinophils # (Auto) 0.0 x10^3/uL (0.0-0.7) Basophils # (Auto) 0.0 x10^3/uL (0.0-0.2) Sodium Level 139 mmol/L (136-145) Potassium Level 3.3 mmol/L (3.5-5.1) Chloride Level 102 mmol/L (98-107) Carbon Dioxide Level 31 mmol/L (21-32) Anion Gap 6 (6-14) Blood Urea Nitrogen 12 mg/dL (8-26) Creatinine 1.0 mg/dL (0.7-1.3) Estimated GFR (Cockcroft-Gault) 82.8 BUN/Creatinine Ratio 12 (6-20) Glucose Level 125 mg/dL (70-99) Calcium Level 8.8 mg/dL (8.5-10.1) Magnesium Level 2.2 mg/dL (1.8-2.4) Total Bilirubin 0.5 mg/dL (0.2-1.0) Aspartate Amino Transf (AST/SGOT) 17 U/L (15-37) Alanine Aminotransferase (ALT/SGPT) 52 U/L (16-63) Alkaline Phosphatase 74 U/L (46-116) Total Protein 7.0 g/dL (6.4-8.2) Albumin 3.7 g/dL (3.4-5.0) Albumin/Globulin Ratio 1.1 (1.0-1.7) Lipase 102 U/L (73-393) Urine Collection Type Unknown Urine Color Yellow Urine Clarity Clear Urine pH 6.5 (<5.0-8.0) Urine Specific [place] >=1.030 (1.000-1.030) Urine Protein 30 mg/dL (NEG-TRACE) Urine Glucose (UA) Negative mg/dL (NEG) Urine Ketones (Stick) Negative mg/dL (NEG) Urine Blood Negative (NEG) Urine Nitrite Negative (NEG) Urine Bilirubin Small (NEG) Urine Urobilinogen Dipstick 1.0 mg/dL (0.2 mg/dL) Urine Leukocyte Esterase Negative (NEG) Urine RBC Rare /HPF (0-2) Urine WBC Rare /HPF (0-4) Urine Squamous Epithelial Cells Occ /LPF Urine Bacteria 0 /HPF (0-FEW) Urine Mucus Mod /LPF SARS-CoV-2 Antigen (Rapid) Negative (NEGATIVE) Laboratory Tests Test 02/21/21 23:05 02/21/21 23:35 02/22/21 01:18 White Blood Count 12.6 x10^3/uL (4.0-11.0) Red Blood Count 4.22 x10^6/uL (4.30-5.70) Hemoglobin 13.5 g/dL (13.0-17.5) Hematocrit 38.3 % (39.0-53.0) Mean Corpuscular Volume 91 fL (79-100) Mean Corpuscular Hemoglobin 32 pg (25-35) Mean Corpuscular Hemoglobin Concent 35 g/dL (31-37) Red Cell Distribution Width 12.7 % (11.5-14.5) Platelet Count 205 x10^3/uL (140-400) Neutrophils (%) (Auto) 75 % (31-73) Lymphocytes (%) (Auto) 13 % (24-48) Monocytes (%) (Auto) 12 % (0-9) Eosinophils (%) (Auto) 0 % (0-3) Basophils (%) (Auto) 0 % (0-3) Neutrophils # (Auto) 9.4 x10^3/uL (1.8-7.7) Lymphocytes # (Auto) 1.7 x10^3/uL (1.0-4.8) Monocytes # (Auto) 1.5 x10^3/uL (0.0-1.1) Eosinophils # (Auto) 0.0 x10^3/uL (0.0-0.7) Basophils # (Auto) 0.0 x10^3/uL (0.0-0.2) Sodium Level 139 mmol/L (136-145) Potassium Level 3.3 mmol/L (3.5-5.1) Chloride Level 102 mmol/L (98-107) Carbon Dioxide Level 31 mmol/L (21-32) Anion Gap 6 (6-14) Blood Urea Nitrogen 12 mg/dL (8-26) Creatinine 1.0 mg/dL (0.7-1.3) Estimated GFR (Cockcroft-Gault) 82.8 BUN/Creatinine Ratio 12 (6-20) Glucose Level 125 mg/dL (70-99) Calcium Level 8.8 mg/dL (8.5-10.1) Magnesium Level 2.2 mg/dL (1.8-2.4) Total Bilirubin 0.5 mg/dL (0.2-1.0) Aspartate Amino Transf (AST/SGOT) 17 U/L (15-37) Alanine Aminotransferase (ALT/SGPT) 52 U/L (16-63) Alkaline Phosphatase 74 U/L (46-116) Total Protein 7.0 g/dL (6.4-8.2) Albumin 3.7 g/dL (3.4-5.0) Albumin/Globulin Ratio 1.1 (1.0-1.7) Lipase 102 U/L (73-393) Urine Collection Type Unknown Urine Color Yellow Urine Clarity Clear Urine pH 6.5 (<5.0-8.0) Urine Specific [place] >=1.030 (1.000-1.030) Urine Protein 30 mg/dL (NEG-TRACE) Urine Glucose (UA) Negative mg/dL (NEG) Urine Ketones (Stick) Negative mg/dL (NEG) Urine Blood Negative (NEG) Urine Nitrite Negative (NEG) Urine Bilirubin Small (NEG) Urine Urobilinogen Dipstick 1.0 mg/dL (0.2 mg/dL) Urine Leukocyte Esterase Negative (NEG) Urine RBC Rare /HPF (0-2) Urine WBC Rare /HPF (0-4) Urine Squamous Epithelial Cells Occ /LPF Urine Bacteria 0 /HPF (0-FEW) Urine Mucus Mod /LPF SARS-CoV-2 Antigen (Rapid) Negative (NEGATIVE) Images: Images PROCEDURE: CT ABD PELV W/ IV CONTRST ONLY IMPRESSION: 1. Acute uncomplicated appendicitis with appendicolith. 2. Diffuse hepatic steatosis. Assessment/Plan Assessment/Plan Acute abdominal pain due to acute appendicitis Hypokalemia Reactive leukocytosis Obesity class I Admit to hospitalist for further management General surgery consult Plan for laparoscopic appendectomy today N.p.o. Continue IV fluids Continue empiric IV antibiotics SCD and Lovenox for DVT prophylaxis Protonix GI prophylaxis ADA diet Full code Discussed with RN and SW Disposition surgery Surrogate decision maker is Rand Araiza Justifications for Admission Other Justification Altered mental status. ROSE MARIE LEE MD Feb 22, 2021 08:54
--- NOTE | 2021-02-22 09:05 | PDOC4 ---
Operative Note Operative Note Date: February 22 the 2020 at 09 100 Preoperative diagnosis: Acute appendicitis Postoperative diagnosis: Same Procedure: Laparoscopic appendectomy Surgeon: Ezra Specimen: Appendix Dictation: Patient is a 40-year-old male with right lower quadrant abdominal pain and CT scan findings consistent with acute appendicitis. Procedure of laparoscopic appendectomy was explained to the patient detail risk benefits were also discussed including bleeding infection injury to intra- abdominal contents possible necessitating further open operations alternatives to this procedure also discussed with the patient who seemed to understand and gave a verbal and written consent to have the procedure performed. Patient was taken to the operating room placed in the supine position general anesthesia was initiated once patient was sleeping intubated his abdomen was prepped and draped usual sterile fashion using ChloraPrep. An area just above the umbilicus was injected with quarter percent Marcaine with epinephrine incision was made 11 blade scalpel and a varies needle was placed within the abdomen creating pneumoperitoneum once this complete 12 mm port was placed in a 5 mm camera was placed within the abdomen which was inspected no other abnormalities were noted. A 5 mm port was placed low in the midline under direct visualization and a 5 mm port was placed in the right midabdomen. Patient was placed in steep Trendelenburg and tilted toward the left the appendix was visualized being quite retrocecal. Using graspers the appendix was freed up from its lateral attachments. A window was propagated the base of the appendix through the mesoappendix and Endo IVORY stapler was used to staple and transect the base of the appendix a second load was used to staple and transect the mesoappendix. The appendix was a placed in an Endo Catch bag and removed from the umbilicus incision. Right lower quadrant and pelvis were irrigated and suctioned dry hemostasis deemed to be appropriate the pneumoperitoneum was reduced all ports were removed the fascial defect at the umbilicus was closed with a figure-of-e ight 0 Vicryl suture and the skin was reapproximated all port sites for subcuticular Monocryl Mastisol Steri-Strips and island dressings were applied. Patient was awakened and extubated in the operating room taken to recovery in stable condition all sponge instrument needle counts listed as correct estimated blood loss 20 mL RODGER CORRAL MD Feb 22, 2021 09:05
[2021-02-22] MEDS ORDERED: oxyCODONE/APAP 5/325 1 TAB TABLET PO PRN ×2 (09:15)
--- NOTE | 2021-02-22 10:16 | NUR ---
SW following. Discussed with RN, pt from home, room air, NPO, rapid COVID-19 negative. Pt having surgery today. Dr. Lozano thinks pt may be ready for discharge later today. SW will continue to follow.
--- NOTE | 2021-02-22 10:31 | NUR ---
Pt. back from PACU, rates pain at 0/10. Lap sites x 3 CDI.
[2021-02-22] MEDS: KETOROLAC 15 MG/ML VIAL. IVP SCH ×3 (11:42→23:23)
[2021-02-22 12:26] LABS: ALBUMIN 3.2 g/dL (3.4-5.0); ALBUMIN/GLOBULIN RATIO 0.9 (1.0-1.7); CALCIUM 8.2 mg/dL (8.5-10.1); CREATININE 1.1 mg/dL (0.7-1.3); GFR 74.1; POTASSIUM 3.6 mmol/L (3.5-5.1); TOTAL PROTEIN 6.6 g/dL (6.4-8.2)
--- NOTE | 2021-02-22 13:00 | NUR ---
Attempt made to contact [facility] for Losartan/HCTZ dose. [facility] stated they did not have a dose for pt in their system.
[2021-02-23 03:00] VITALS: BP 115/76
[2021-02-23] MEDS: PIPERACILLIN/TAZOBACTAM 3.375 GM in IV NORMAL SALINE 50ML 50 ML IV SCH (05:25)
[2021-02-23] MEDS: KETOROLAC 15 MG/ML VIAL. IVP SCH (05:26)
[2021-02-23] MEDS: HEPARIN for SUB-Q USE 5,000 UNIT/ML VIAL. SQ SCH (05:31)
[2021-02-23 07:00] VITALS: BP 120/76
[2021-02-23 07:02] LABS: BASO % 0 % (0-3); EOS % 0 % (0-3); HEMATOCRIT 37.1 % (39.0-53.0); HEMOGLOBIN 12.6 g/dL (13.0-17.5); LYMPH # 1.2 x10^3/uL (1.0-4.8); LYMPH % 12 % (24-48); MEAN CORPUSCULAR HEMOGLOBIN 32 pg (25-35); MEAN CORPUSCULAR HGB CONC 34 g/dL (31-37); MEAN CORPUSCULAR VOLUME 93 fL (79-100); MONO # 0.9 x10^3/uL (0.0-1.1); MONO % 9 % (0-9); NEUT # 8.1 x10^3/uL (1.8-7.7); NEUT % 79 % (31-73); PLATELET COUNT 183 x10^3/uL (140-400); RED CELL DISTRIBUTION WIDTH 13.1 % (11.5-14.5); WHITE BLOOD COUNT 10.2 x10^3/uL (4.0-11.0)
[2021-02-23 07:04] LABS: CALCIUM 8.2 mg/dL (8.5-10.1); GFR 82.8; MAGNESIUM 2.2 mg/dL (1.8-2.4); PHOSPHORUS 2.2 mg/dL (2.6-4.7); POTASSIUM 3.5 mmol/L (3.5-5.1)
[2021-02-23] MEDS ORDERED: SENN1TAB99 PO (08:39)
[2021-02-23] MEDS ORDERED: OXYC1TAB15 PO (08:39)
--- NOTE | 2021-02-23 08:40 | DISCH ---
DISCHARGE INSTRUCTIONS Condition on Discharge Condition on Discharge: Stable Activity After Discharge Activity Instructions for Disc: Activity as tolerated Lifting Instructions after Dis: Do not lift >10 pounds Exercise Instruction after Dis: Walk 15 min, 3 x per day Driving Instructions after Dis: Do not drive today Weight Bearing Status after Di: Full weight bearing Diet after Discharge Diet after Discharge: Cardiac Contacting the DRFrancia after DC Call your doctor for: Fever greater than 100 Follow-Up Follow up with: PCP within 2 weeks of discharge Follow Up With: General surgery within 2 weeks for postoperative wound check ROSE MARIE LEE MD Feb 23, 2021 08:40
--- NOTE | 2021-02-23 09:01 | PDOC ---
SURGICAL PROGRESS NOTE DATE: 02/23/21 TIME: 09:00 Subjective doing well pain managed tolerating diet Vital Signs Vital Signs Date Time Temp Pulse Resp B/P (MAP) Pulse Ox O2 Delivery O2 Flow Rate FiO2 02/23/21 07:00 98.1 64 18 120/76 (91) 97 Room Air 98.1 02/22/21 09:32 10 I&O Intake and Output 02/23/21 06:59 Intake Total 1150 ml Output Total 20 ml Balance 1130 ml Intake Oral 200 ml IV Total 950 ml Output Estimated Blood Loss 20 ml # Voids 6 General: Alert, Oriented X3, Cooperative Abdomen: Soft, Other (lap dressings dry) Labs Laboratory Tests Test 02/21/21 23:05 02/21/21 23:35 02/22/21 01:05 02/22/21 01:18 White Blood Count 12.6 x10^3/uL (4.0-11.0) Red Blood Count 4.22 x10^6/uL (4.30-5.70) Hemoglobin 13.5 g/dL (13.0-17.5) Hematocrit 38.3 % (39.0-53.0) Mean Corpuscular Volume 91 fL (79-100) Mean Corpuscular Hemoglobin 32 pg (25-35) Mean Corpuscular Hemoglobin Concent 35 g/dL (31-37) Red Cell Distribution Width 12.7 % (11.5-14.5) Platelet Count 205 x10^3/uL (140-400) Neutrophils (%) (Auto) 75 % (31-73) Lymphocytes (%) (Auto) 13 % (24-48) Monocytes (%) (Auto) 12 % (0-9) Eosinophils (%) (Auto) 0 % (0-3) Basophils (%) (Auto) 0 % (0-3) Neutrophils # (Auto) 9.4 x10^3/uL (1.8-7.7) Lymphocytes # (Auto) 1.7 x10^3/uL (1.0-4.8) Monocytes # (Auto) 1.5 x10^3/uL (0.0-1.1) Eosinophils # (Auto) 0.0 x10^3/uL (0.0-0.7) Basophils # (Auto) 0.0 x10^3/uL (0.0-0.2) Sodium Level 139 mmol/L (136-145) Potassium Level 3.3 mmol/L (3.5-5.1) Chloride Level 102 mmol/L (98-107) Carbon Dioxide Level 31 mmol/L (21-32) Anion Gap 6 (6-14) Blood Urea Nitrogen 12 mg/dL (8-26) Creatinine 1.0 mg/dL (0.7-1.3) Estimated GFR (Cockcroft-Gault) 82.8 BUN/Creatinine Ratio 12 (6-20) Glucose Level 125 mg/dL (70-99) Calcium Level 8.8 mg/dL (8.5-10.1) Magnesium Level 2.2 mg/dL (1.8-2.4) Total Bilirubin 0.5 mg/dL (0.2-1.0) Aspartate Amino Transf (AST/SGOT) 17 U/L (15-37) Alanine Aminotransferase (ALT/SGPT) 52 U/L (16-63) Alkaline Phosphatase 74 U/L (46-116) Total Protein 7.0 g/dL (6.4-8.2) Albumin 3.7 g/dL (3.4-5.0) Albumin/Globulin Ratio 1.1 (1.0-1.7) Lipase 102 U/L (73-393) Urine Collection Type Unknown Urine Color Yellow Urine Clarity Clear Urine pH 6.5 (<5.0-8.0) Urine Specific [place] >=1.030 (1.000-1.030) Urine Protein 30 mg/dL (NEG-TRACE) Urine Glucose (UA) Negative mg/dL (NEG) Urine Ketones (Stick) Negative mg/dL (NEG) Urine Blood Negative (NEG) Urine Nitrite Negative (NEG) Urine Bilirubin Small (NEG) Urine Urobilinogen Dipstick 1.0 mg/dL (0.2 mg/dL) Urine Leukocyte Esterase Negative (NEG) Urine RBC Rare /HPF (0-2) Urine WBC Rare /HPF (0-4) Urine Squamous Epithelial Cells Occ /LPF Urine Bacteria 0 /HPF (0-FEW) Urine Mucus Mod /LPF SARS-CoV-2 RNA (FERMIN) Negative (Negative) SARS-CoV-2 Antigen (Rapid) Negative (NEGATIVE) Test 02/22/21 12:00 02/23/21 06:10 Sodium Level 140 mmol/L (136-145) 140 mmol/L (136-145) Potassium Level 3.6 mmol/L (3.5-5.1) 3.5 mmol/L (3.5-5.1) Chloride Level 105 mmol/L (98-107) 106 mmol/L (98-107) Carbon Dioxide Level 23 mmol/L (21-32) 26 mmol/L (21-32) Anion Gap 12 (6-14) 8 (6-14) Blood Urea Nitrogen 14 mg/dL (8-26) 15 mg/dL (8-26) Creatinine 1.1 mg/dL (0.7-1.3) 1.0 mg/dL (0.7-1.3) Estimated GFR (Cockcroft-Gault) 74.1 82.8 BUN/Creatinine Ratio 13 (6-20) Glucose Level 121 mg/dL (70-99) 117 mg/dL (70-99) Calcium Level 8.2 mg/dL (8.5-10.1) 8.2 mg/dL (8.5-10.1) Total Bilirubin 1.0 mg/dL (0.2-1.0) Aspartate Amino Transf (AST/SGOT) 41 U/L (15-37) Alanine Aminotransferase (ALT/SGPT) 68 U/L (16-63) Alkaline Phosphatase 77 U/L (46-116) Total Protein 6.6 g/dL (6.4-8.2) Albumin 3.2 g/dL (3.4-5.0) Albumin/Globulin Ratio 0.9 (1.0-1.7) White Blood Count 10.2 x10^3/uL (4.0-11.0) Red Blood Count 4.00 x10^6/uL (4.30-5.70) Hemoglobin 12.6 g/dL (13.0-17.5) Hematocrit 37.1 % (39.0-53.0) Mean Corpuscular Volume 93 fL (79-100) Mean Corpuscular Hemoglobin 32 pg (25-35) Mean Corpuscular Hemoglobin Concent 34 g/dL (31-37) Red Cell Distribution Width 13.1 % (11.5-14.5) Platelet Count 183 x10^3/uL (140-400) Neutrophils (%) (Auto) 79 % (31-73) Lymphocytes (%) (Auto) 12 % (24-48) Monocytes (%) (Auto) 9 % (0-9) Eosinophils (%) (Auto) 0 % (0-3) Basophils (%) (Auto) 0 % (0-3) Neutrophils # (Auto) 8.1 x10^3/uL (1.8-7.7) Lymphocytes # (Auto) 1.2 x10^3/uL (1.0-4.8) Monocytes # (Auto) 0.9 x10^3/uL (0.0-1.1) Eosinophils # (Auto) 0.0 x10^3/uL (0.0-0.7) Basophils # (Auto) 0.0 x10^3/uL (0.0-0.2) Phosphorus Level 2.2 mg/dL (2.6-4.7) Magnesium Level 2.2 mg/dL (1.8-2.4) Laboratory Tests Test 02/22/21 12:00 02/23/21 06:10 Sodium Level 140 mmol/L (136-145) 140 mmol/L (136-145) Potassium Level 3.6 mmol/L (3.5-5.1) 3.5 mmol/L (3.5-5.1) Chloride Level 105 mmol/L (98-107) 106 mmol/L (98-107) Carbon Dioxide Level 23 mmol/L (21-32) 26 mmol/L (21-32) Anion Gap 12 (6-14) 8 (6-14) Blood Urea Nitrogen 14 mg/dL (8-26) 15 mg/dL (8-26) Creatinine 1.1 mg/dL (0.7-1.3) 1.0 mg/dL (0.7-1.3) Estimated GFR (Cockcroft-Gault) 74.1 82.8 BUN/Creatinine Ratio 13 (6-20) Glucose Level 121 mg/dL (70-99) 117 mg/dL (70-99) Calcium Level 8.2 mg/dL (8.5-10.1) 8.2 mg/dL (8.5-10.1) Total Bilirubin 1.0 mg/dL (0.2-1.0) Aspartate Amino Transf (AST/SGOT) 41 U/L (15-37) Alanine Aminotransferase (ALT/SGPT) 68 U/L (16-63) Alkaline Phosphatase 77 U/L (46-116) Total Protein 6.6 g/dL (6.4-8.2) Albumin 3.2 g/dL (3.4-5.0) Albumin/Globulin Ratio 0.9 (1.0-1.7) White Blood Count 10.2 x10^3/uL (4.0-11.0) Red Blood Count 4.00 x10^6/uL (4.30-5.70) Hemoglobin 12.6 g/dL (13.0-17.5) Hematocrit 37.1 % (39.0-53.0) Mean Corpuscular Volume 93 fL (79-100) Mean Corpuscular Hemoglobin 32 pg (25-35) Mean Corpuscular Hemoglobin Concent 34 g/dL (31-37) Red Cell Distribution Width 13.1 % (11.5-14.5) Platelet Count 183 x10^3/uL (140-400) Neutrophils (%) (Auto) 79 % (31-73) Lymphocytes (%) (Auto) 12 % (24-48) Monocytes (%) (Auto) 9 % (0-9) Eosinophils (%) (Auto) 0 % (0-3) Basophils (%) (Auto) 0 % (0-3) Neutrophils # (Auto) 8.1 x10^3/uL (1.8-7.7) Lymphocytes # (Auto) 1.2 x10^3/uL (1.0-4.8) Monocytes # (Auto) 0.9 x10^3/uL (0.0-1.1) Eosinophils # (Auto) 0.0 x10^3/uL (0.0-0.7) Basophils # (Auto) 0.0 x10^3/uL (0.0-0.2) Phosphorus Level 2.2 mg/dL (2.6-4.7) Magnesium Level 2.2 mg/dL (1.8-2.4) Problem List Problems Medical Problems: (1) Acute appendicitis Status: Acute Assessment/Plan s/p appy wbc 10.2 ok to dc Justicifation of Admission Dx: Justifications for Admission: Justification of Admission Dx: Yes Comments: appendicitis TYSHAWN VINCENT APRN Feb 23, 2021 09:01
--- NOTE | 2021-02-23 10:31 | NUR ---
SW following. Discussed with RN, discharge order for home with self care. RN advised no SW needs.
--- NOTE | 2021-02-23 10:45 | NUR ---
Patient verbalized understanding of discharge instructions. No questions at this time.
--- NOTE | 2021-02-23 17:07 | PATHOLOGY ---
[facility] Accession Number: [id number] . 01 Material submitted: . appendix - APPENDIX . 01 Clinical history: . ACUTE APPENDICITIS LAP APPY . 02 Diagnosis: Appendix, laparoscopic appendectomy: - Fecalith. - Acute appendicitis, with serosal exudate. . ([facility]:mm; 02/23/2021) [facility] 02/23/2021 1522 Local . 02 Comment: There is no evidence of rupture. There is no evidence of malignancy. . ([facility]:mml; 02/23/2021) . 02 Electronically signed: . Gurmeet Ordonez MD, Pathologist NPI- [id number] . 01 Gross description: . Fixative: Formalin Labeled: Appendix Appendix length: 6.6 cm Appendix diameter: Up to 1.0 cm Mesoappendix: 0.9 cm Proximal margin: Stapled Serosa: [place] to red-brown, shaggy Cut surface: Pinpoint to dilated lumen Luminal diameter: Up to 1.0 with a 1.0 cm fecalith identified. Perforation: None identified Lesions/abnormalities: None identified . Proximal margin and bisected tip in cassette A1. Additional sales representative consultant cross-sections in cassette A2. ([facility]; 02/22/2021) [facility] 02/23/2021 1520 Local . 02 Pathologist provided ICD-10: K35.80 . 02 CPT . 236058 Specimen Comment: A courtesy copy of this report has been sent to [phone] Specimen Comment: [phone], Specimen Comment: Report sent to , DR OBANDO / DR CUELLO Performed at: [address] [place] [address] [address], [place], [place] [id number] MD Yovanny Shah MD Phone: [phone] Performed at: [address] [id number] MD Gurmeet Ordonez MD Phone: [phone]
--- NOTE | 2021-02-25 21:10 | PDOC3 ---
[facility]-Discharge Summary Date of Admission: Date of Admission: Feb 22, 2021 Date of Discharge: Date of Discharge: Feb 23, 2021 Discharge Diagnosis: Discharge Diagnosis: Acute abdominal pain due to acute appendicitis Hypokalemia Reactive leukocytosis Obesity class I Hospital Course: Hospital Course: 40-year-old fairly healthy male presents with report of right lower quadrant abdominal pain. Patient reports pain all over the abdomen that slowly migrated to the right side.. Reports has been ongoing since 2 days ago. Denies known sick contacts. Reports associated subjective fever/chills, headache, and generalized malaise, denies surgical history. Denies fevers, chest pain, diarrhea, trauma or bloody stools. Taken to OR for laparoscopic appendectomy. Tolerated procedure well without any postoperative complications. Ambulating, pain was well controlled, and to lerating diet. The rest of the hospital course was uneventful. Disposition: Disposition/Orders: D/C to Home Activity: Activity: Resume previous activity Diet: Diet: Regular Medications: Home Meds Active Scripts Sennosides/Docusate Sodium (Senna-Docusate Sodium Tablet) 1 Each Tablet, 1 TAB PO DAILY PRN for CONSTIPATION for 20 Days, #20 TAB 0 Refills Prov:ROSE MARIE LEE MD 02/23/21 Oxycodone/Apap 5-325 (PERCOCET 5-325 MG TABLET ) 1 Each Tablet, 1 TAB PO PRN Q6-8HRS PRN for MODERATE PAIN for 2 Days, #8 TAB Prov:ROSE MARIE LEE MD 02/23/21 Scheduled PRN Oxycodone/Apap 5-325 (Percocet 5-325 Mg Tablet ), 1 TAB PO PRN Q6-8HRS PRN for MODERATE PAIN Sennosides/Docusate Sodium (Senna-Docusate Sodium Tablet), 1 TAB PO DAILY PRN for CONSTIPATION Total Time: Total Time: Total time spent was 31 minutes in preparing scripts, discharge planning with SW and RN, and preparing this discharge summary. Patient seen and examined on day of discharge. Justicifation of Admission Dx: Justifications for Admission: Justification of Admission Dx: Yes ROSE MARIE LEE MD Feb 25, 2021 21:10
[2021-03-06] MEDS ORDERED: AMOX1TAB61 PO (16:02)
--- NOTE | 2021-03-10 12:43 | NUR ---
Late entry - Piperacillin infusion started on 02/22/21 at 0724 stopped on 02/22/21 at 0754. Piperacillin infusion started on 02/22/21 at 1142 stopped on 02/22/21 at 1212. Piperacillin infusion started on 02/22/21 at 1730 stopped on 02/22/21 at 1800. Piperacillin infusion started on 02/22/21 at 2323 stopped on 02/22/21 at 2353. Piperacillin infusion started on 02/23/21 at 0525 stopped on 02/23/21 at 0555. NaCl infusion started on 02/21/21 at 2319 stopped on 02/22/21 at 0019. NaCl infusion started on 02/22/21 at 0540 stopped at 1048 on 02/22/21. NaCl infusion started on 02/22/21 at 1049 stopped at 2056 on 02/22/21. NaCl infusion started on 02/22/21 at 2056 stopped on 02/23/21 at 0656.
== END 2021-02-23 10:20 | disposition home or self-care (01) ==
LOC: ER 22:52 → INTOOBSV 02-22 03:47 → ED HOLD 02-22 03:47 → 4 NORTH 02-22 04:29
PROVIDERS: ADMIT Family Medicine; ATTEND Family Medicine
DX: K35.80 Unspecified acute appendicitis (principal); Z20.822 Contact with and (suspected) exposure to COVID-19; R51.9 Headache, unspecified; K76.0 Fatty (change of) liver, not elsewhere classified; E87.6 Hypokalemia; E66.9 Obesity, unspecified; D72.828 Other elevated white blood cell count; R53.81 Other malaise; R41.82 Altered mental status, unspecified
CPT/HCPCS: 36415; 44970; 74177; 80048; 80053; 81001; 83690; 83735; 84100; 85025; 87426; 88304; 96361; 96365; 96366; 96372; 96375; 96376; 99291; A4314; A4364; A4930; A6219; G0378; J0330; J1100; J1644; J1885; J2250; J2405; J2543; J2704; J2710; J2765; J3010; J3490; J7030; J7120; Q9967; U0003; U0005; A4452; G0379

== ENCOUNTER → 2021-03-17 | Outpatient (CLI) | payer OTHER ==
[2021-03-06 11:00] VITALS: BP 131/85
[~2021-03-17] MED LIST: AMOX1TAB61 PO; CONTRAST GIVEN. MC PRN; IOHEXOL 240 MG/ML 50ML VIAL. PO ONE; IOHEXOL 300 MG/ML 100ML VIAL. IV ONE; OXYC1TAB15 PO; SENN1TAB99 PO
--- NOTE | 2021-03-17 11:24 | PDOC ---
Provider Note Date of Service: DATE: 03/17/21 TIME: 11:22 Provider Note IR NOTE Per surgery request, patient seen following CT scan. Images reviewed. No residual abscess. Patient reports no significant output for several days. No fever, or significant pain. Drain removed without issue. Sterile dressing applied and site care instructions discussed. Patient given contact info in case any issues should arise. Justifications for Admission Other Justification post op abscess KAYLIE BAJWA MD Mar 17, 2021 11:24
--- NOTE | 2021-03-17 12:29 | RAD ---
CT of the abdomen and pelvis with contrast 03/17/2021 12:24 PM Indication: Reason: ABSCESS AFTER PROCEDURE, drainage catheter in place Comparison study: CT abdomen March 03, 2021 Technique: Multidetector CT imaging of the abdomen and pelvis was performed following the administrat ion of IV contrast. Findings: The partially visualized lung bases demonstrate no acute abnormality. The liver, gallbladder, spleen, bilateral adrenal glands, bilateral kidneys, and pancreas, are grossl y unremarkable. There is no bowel obstruction. No evidence of acute inflammatory change involving vis ualized bowel is identified. Appendix is visualized and unremarkable in appearance. Bladder is grossl y unremarkable. No free fluid or free air is seen in the abdomen or pelvis. No acute osseous changes are identified. Right lower quadrant drainage catheter noted. No associated abscess or fluid collect ion is seen on today's study. Postoperative changes following appendectomy noted. Impression: 1. No evidence of acute intra-abdominal abnormality is identified. 2. Right lower quadrant drain persists without residual abscess cavity CT DOSING PQRS STATEMENT: One or more of the following individualized dose reduction techniques were utilized for this examinat ion: 1. Automated exposure control 2. Adjustment of the mA and/or kV according to patient size 3. Use of iterative reconstruction technique Electronically signed by: Pato Tirado MD (03/17/2021 12:26 PM) [id number]
== END ==
LOC: CT 09:23
PROVIDERS: ATTEND Nurse Practitioner Family
DX: T81.49XA Infection following a procedure, other surgical site, initial encounter (principal); Y83.9 Surgical procedure, unspecified as the cause of abnormal reaction of the patient, or of later complication, without mention of misadventure at the time of the procedure
CPT/HCPCS: 74177; Q9966; Q9967